=== PATIENT | male | born 2000 | race Caucasian/White ===

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

== ENCOUNTER 2024-05-28 09:54 | Emergency (ER) | payer OTHER, SELFPAY ==
[2024-05-28 09:55] VITALS: BP 150/91; PULSE 67; RESP 16; TEMP 36.8; O2SAT 100; BMI 27.3
[2024-05-28] MEDS: Lidocaine 1% (20 ml mdv) 20 ML Vial INFILT (10:34)
--- NOTE | 2024-05-28 10:50 | EX.ED.GENINJ ---
HPI History of Present Illness Chief Complaint: Head Injury Informant: patient and parent Narrative Narrative: 23-year-old male was working out today when a 25 pound plate hit him right forehead. No loss of conscious no nausea vomiting no headache. He notes some tenderness and soreness around his right forehead where there is a laceration. Unknown last tetanus but patient and his mother do not feel that he needs a tetanus shot. He denies any other injuries. Tetanus Immunization: Unknown PFS PFS Medical History no medical history Home Medications ?Medication ?Instructions ?Recorded ?Last Taken ?Type NK 05/28/24 Unknown History Allergy/AdvReac Type Severity Reaction Status Date / Time No Known Allergies Allergy Verified 05/28/24 09:54 Surgical History no surgical history Social History Smoking Status: Never smoker ROS ROS ED Constitutional Constitutional ED: Denies chills, fever(s) or weight loss Eyes Eyes: Denies change in vision or diplopia ENT ENT ED: Denies ear pain, rhinorrhea or sore throat Cardiovascular Cardiovascular: Denies chest pain, orthopnea, palpitations or racing heartbeat Respiratory/Chest Respiratory/Chest: Denies cough, dyspnea or orthopnea Gastrointestinal Gastrointestinal: Denies abdominal pain, diarrhea, nausea or vomiting Genitourinary Genitourinary ED: Denies dysuria, hematuria or urinary frequency Musculoskeletal Musculoskeletal: Denies arthralgias or myalgias Integumentary Reports other Details: Right forehead laceration ; Denies abscess or rash Neurologic Neurologic: Denies headache(s) or weakness Psychiatric Psychiatric: Denies anxiety, depression, suicidal ideation or suicidal thoughts Endocrine Endocrinology: Denies polydipsia, polyphagia or polyuria Allergic/Immunologic Allergic/Immunologic ED: Denies mouth swelling, tongue swelling or urticaria EXAM Physical Exam Const Vital Signs: 05/28/24 09:55 05/28/24 10:01 Temperature 98.3 F Temperature Source Oral Pulse Rate 67 Respiratory Rate 16 Respiratory Effort Normal Non-Labored Respiratory Depth Normal Respiratory Pattern Normal Blood Pressure 150/91 H Blood Pressure Mean 110 Pulse Ox 100 Oxygen Delivery Method Room Air Room Air Positive well nourished and well developed General Appearance ED: well developed and NAD HEENT Reports normocephalic and moist mucous membranes HEENT Narrative: No palpable bony depressions. Patient able to wrinkle his forehead. There is a 3 cm lightening bolt like laceration across the right mid forehead. It is gaping. There is mild venous bleeding Eyes PERRL and EOMs intact bilaterally Neck full ROM, no lymphadenopathy, supple and no JVD Resp normal respiratory effort and clear to auscultation bilaterally Cardio regular rate, regular rhythm and no murmurs GI normal to inspection, nondistended, normoactive bowel sounds and non-tender Palpation: soft Back/Spine no CVA tenderness and normal ROM Extremity normal to inspection General Extremety ED: Negative for edema General Extremity: Negative for edema Neuro oriented x3 and CN's II-XII intact bilaterally Sensorium / Orientation: alert Motor Exam: strength 5/5 throughout Psych mental status grossly normal Mood & Affect: Negative for depressed or tearful Skin no rashes or lesions noted and no wounds MDM MDM MDM Narrative Medical decision making narrative: Differential diagnosis includes facial laceration neurovascular injury skull fracture intracranial hemorrhage hematoma concussion Other than the laceration the patient does not give any other concussive symptoms at this time. Wound was locally anesthetized using 1% lidocaine washed with Shur-Clens gently irrigated. Wound was closed using 5 simple interrupted 5-0 Ethilon sutures. Wound care discussed with patient. Wound will be dressed by nursing. Follow-up 5 to 7 days for suture removal. History & Record Review Discussion w/independent historian: Patient and Family Discharge Plan Triage Chief Complaint: Head Injury Other Complaint: Laceration ED Provider: Dominic Quiroz Dx/Rx/DC Orders Clinical Impression: Forehead laceration, Head injury Instructions: ED Head Injury (Adult), ED Laceration, All Closures Prescriptions: No Action NK Primary Care Provider: Moises Marino Referrals: Moises Marino MD [Primary Care Provider] - (stitches need taken out in 5-7 days ) Activity Restrictions/Additional Instructions: Antibiotic ointment 1 time per day. No swimming. Showers are okay. Print Language: Kiswahili Disposition Disposition: Home, Self Care
[2024-05-28 10:59] VITALS: BP 114/78; PULSE 81; RESP 17; TEMP 36.1; O2SAT 100
== END 2024-05-28 11:00 | disposition home or self-care (01) ==
LOC: ED 10:54
PROVIDERS: Emergency Provider Emergency Medicine; PCP Family Medicine; Visit Provider Emergency Medicine
DX: S01.81XA Laceration without foreign body of other part of head, initial encounter (principal); W22.8XXA Striking against or struck by other objects, initial encounter; Y93.B9 Activity, other involving muscle strengthening exercises
CPT/HCPCS: 12013; 90715; 99283